=== PATIENT | female | born 1940 | race Caucasian/White ===

== ENCOUNTER → 2017-11-10 | Outpatient (CLI) | payer OTHER ==
[~2017-11-10] MED LIST: ADAL40PEN PO; ERYT.5TO BOTHEYES; ESTR2 PO; IBUP600 PO; MEDR10 PO
== END ==
LOC: LAB SHORT 10:35 → LAB 10:35
DX: L02.11 Cutaneous abscess of neck (principal)
CPT/HCPCS: 87070; 87205

== ENCOUNTER → 2022-06-03 | Outpatient (CLI) | payer OTHER ==
[2022-06-03 11:28] LABS: Source, Urine Clean Catch
[2022-06-03 13:51] LABS: Appearance, Urine Clear (Clear); Bilirubin, Urine Neg (Neg); Blood, Urine 2+ (Neg); Color, Urine Yellow (P-Yellow); Glucose Qualitative, Urine Neg (Neg); Ketones, Urine Neg (Neg); Leukocyte Esterase, Urine 2+ (Neg); Nitrite, Urine Neg (Neg); Protein, Urine Neg (Neg); Specific Gravity, Urine 1.015 (1.003-1.022); Urobilinogen, Urine NORM (Normal)
[2022-06-03 14:07] LABS: Bacteria Few /hpf; Squamous Epithelial Cells Few /hpf (Few); Transitional Epithelial Cells Few /hpf (0-Rare); White Blood Cells, Urine 50-100 /hpf (0-5)
== END | disposition home or self-care (01) ==
LOC: LAB SHORT 11:27 → LAB 11:27
PROVIDERS: Internal Medicine
DX: N39.0 Urinary tract infection, site not specified (principal)
CPT/HCPCS: 81001; 87086

== ENCOUNTER 2022-06-12 16:20 | Emergency (ER) | payer OTHER ==
[~2022-06-12] VITALS: Ht 165.1 cm; Wt 59.0 kg
== END 2022-06-12 20:23 | disposition home or self-care (01) ==
LOC: ER 16:20
DX: R47.01 Aphasia (principal); Z91.012 Allergy to eggs
CPT/HCPCS: 70450

== ENCOUNTER → 2022-07-09 | Outpatient (CLI) | payer OTHER ==
[2022-07-09 13:38] LABS: BASOPHILS ABSOLUTE AUTO 0.09 K/mm3 (0.00-0.23); BASOPHILS PERCENT AUTO 1 % (0-2); EOSINOPHILS ABSOLUTE AUTO 0.24 K/mm3 (0.00-0.68); EOSINOPHILS PERCENT AUTO 3 % (0-6); Hematocrit 35.4 % (33.0-51.0); Hemoglobin 11.6 g/dL (11.5-16.0); IMMATURE GRAN ABSOLUTE AUTO 0.02 K/mm3 (0.00-0.10); IMMATURE GRAN PERCENT AUTO 0 % (0-1); LYMPHOCYTES ABSOLUTE AUTO 1.87 K/mm3 (0.84-5.20); LYMPHOCYTES PERCENT AUTO 26 % (21-46); MONOCYTES PERCENT AUTO 13 % (4-13); Mean Corpuscular HGB 32.7 pg (26.0-34.0); Mean Corpuscular HGB Conc 32.8 g/dL (31.5-36.5); Mean Corpuscular Volume 100 fL (80-100); Mean Platelet Volume 9.9 fL (9.1-12.4); NEUTROPHILS PERCENT AUTO 57 % (41-73); Platelet Count 314 K/mm3 (150-400); RDW Coefficient Variation 12.1 % (11.7-14.2); RDW Standard Deviation 44.9 fL (35.1-46.3); Red Blood Cell Count 3.55 M/mm3 (3.80-5.20); White Blood Cell Count 7.22 K/mm3 (4.00-11.30)
[2022-07-09 13:58] LABS: Albumin, Blood 2.6 g/dL (3.4-5.0); Albumin/Globulin Ratio 0.6 (0.8-1.8); Bilirubin, Total 0.2 mg/dL (0.1-1.0); Bun/Creatinine Ratio 25.2 (12.0-20.0); Calcium, Blood 8.5 mg/dL (8.5-10.1); Creatinine, Blood 0.72 mg/dL (0.40-1.00); Globulin, Blood 4.2 g/dL (2.2-4.0); Potassium, Blood 4.4 mmol/L (3.5-5.5); Total Protein, Blood 6.8 g/dL (6.4-8.2)
== END | disposition home or self-care (01) ==
LOC: LAB SHORT 12:40
PROVIDERS: Nurse Practitioner
DX: M81.0 Age-related osteoporosis without current pathological fracture (principal); D47.2 Monoclonal gammopathy
CPT/HCPCS: 80053; 85025

== ENCOUNTER 2023-02-10 13:12 | Inpatient (IN) | payer OTHER ==
[~2023-02-10] VITALS: Ht 160 cm; Wt 65.3 kg
[2023-02-10 14:08] LABS: Albumin, Blood 2.8 g/dL (3.4-5.0); Albumin/Globulin Ratio 0.5 (0.8-1.8); Bilirubin, Total 0.4 mg/dL (0.1-1.0); Bun/Creatinine Ratio 18.5 (12.0-20.0); Calcium, Blood 8.9 mg/dL (8.5-10.1); Creatinine, Blood 0.92 mg/dL (0.40-1.00); Globulin, Blood 5.2 g/dL (2.2-4.0); Magnesium, Blood 2.2 mg/dL (1.6-2.4); Potassium, Blood 4.5 mmol/L (3.5-5.5)
[2023-02-10 14:14] LABS: BASOPHILS ABSOLUTE AUTO 0.09 K/mm3 (0.00-0.23); BASOPHILS PERCENT AUTO 2 % (0-2); EOSINOPHILS ABSOLUTE AUTO 0.25 K/mm3 (0.00-0.68); EOSINOPHILS PERCENT AUTO 4 % (0-6); Hematocrit 40.6 % (33.0-51.0); Hemoglobin 13.7 g/dL (11.5-16.0); IMMATURE GRAN ABSOLUTE AUTO 0.05 K/mm3 (0.00-0.10); IMMATURE GRAN PERCENT AUTO 1 % (0-1); LYMPHOCYTES ABSOLUTE AUTO 1.97 K/mm3 (0.84-5.20); LYMPHOCYTES PERCENT AUTO 33 % (21-46); MONOCYTES ABSOLUTE AUTO 0.75 K/mm3 (0.16-1.47); MONOCYTES PERCENT AUTO 12 % (4-13); Mean Corpuscular HGB 32.3 pg (26.0-34.0); Mean Corpuscular HGB Conc 33.7 g/dL (31.5-36.5); Mean Corpuscular Volume 96 fL (80-100); NEUTROPHILS ABSOLUTE AUTO 2.93 K/mm3 (1.96-9.15); NEUTROPHILS PERCENT AUTO 49 % (41-73); NRBC ABSOLUTE 0.02 K/mm3 (0.00-0.02); NRBC Auto 0.3 /100 WBC (0.0-0.2); RDW Coefficient Variation 13.5 % (11.7-14.2); Red Blood Cell Count 4.24 M/mm3 (3.80-5.20); White Blood Cell Count 6.04 K/mm3 (4.00-11.30)
[2023-02-10 14:45] LABS: Mean Platelet Volume 9.7 fL (9.1-12.4); Platelet Count 215 K/mm3 (150-400)
[2023-02-10 15:33] LABS: Anti-Xa UFH, PHA Monitoring <0.10 IU/mL; International Normalized Ratio 0.98; Prothrombin Time Results 10.3 Sec (9.7-11.5)
[2023-02-10 17:15] VITALS: BP 126/63
[2023-02-10 20:11] VITALS: BP 109/69
[2023-02-11] VITALS (20 sets, daily range): BP systolic 73–95; BP diastolic 34–58
--- NOTE | 2023-02-11 03:50 | NUR ---
PHYSICIAN CONTACT PT HYPOTENSIVE WITH MAP LESS THAN 65, ANIMAL RIDES MANAGER PROVIDER NOTIFIED. NEW ORDER FOR 25OML BOLUS CURRENTLY INFUSING.
--- NOTE | 2023-02-11 05:51 | NUR ---
SHIFT SUMMARY A/OX4, SBA TO BATHROOM. TELE SR 60S, DENIES CHEST PAIN/PRESSURE. SPO2 >92% ON RA. HYPOTENSIVE THIS SHIFT WITH MAP 60-65, 250 ML BOLUS GIVEN WELL 10MG OF MIDODRINE. NPO SINCE 0000. NO ACUTE CHANGES AT THIS TIME. BED IN LOWEST POSITION WITH CALL LIGHT IN REACH. WILL CONTINUE TO MONITOR AND REPORT TO ONCOMING RN. PATIENT EDUCATED RE: IGNITION SOURCES AND RISK OF INJURY WHILE OXYGEN IS IN USE. PATIENT DENIES SMOKING & PATIENT VERBALIZES UNDERSTANDING.
[2023-02-11 05:54] LABS: Hematocrit 38.3 % (33.0-51.0); Mean Platelet Volume 9.1 fL (9.1-12.4); Platelet Count 229 K/mm3 (150-400)
--- NOTE | 2023-02-11 13:26 | NUR ---
ASSUMED CARE OF PT AT 0700 THIS AM. FIRE SAFETY EDUCATION COMPLETED, PT'S ROOM NEGATIVE FOR IGITION SOURCES. PT DENIES CHEST PAIN OR PRESSURE. DR CARTAGENA AND DR ROBLES IN TO SEE PT THIS AM, PLAN FOR RN EMERGENCY ROOM TODAY. PT TO RN EMERGENCY ROOM @ 0932 AND RETURNED TO ROOM @ 1025. SEE PROCEDURE NOTE FOR DETAILS. TR BAND TO R WRIST WNL, WILL FOLLOW TR BAND ORDERS TO RECOVER. PT AND 'S QUESTIONS ANSWERED TO KRYSTLE GLEASON ABOUT THE PROCEDURE AND DX. PT DENIES CHEST PAIN OR PRESSURE ON RETURN TO ROOM. EDUCATED ABOUT TR BAND PRECAUTIONS AND RECOVERY. BP&MAP NOTED TO BE RUNNING LOW THIS AFTERNOON, SEE VS RECORD. PT IS ASYMPTOMATIC WITH THIS. DR ROBLES NOTIFIED, NO NEW ORDERS AT THIS TIME. PT IS ABLE TO USE CALL LIGHT FOR NEEDS, CALL LIGHT IN REACH, WILL CONTINUE TO MONITOR.
--- NOTE | 2023-02-11 13:46 | NUR ---
Spiritual Care Visit. Pt. is awake in bed and welcomes my visit. Family members are present. After introductions I facilitate a life review. Pt. displays evidence of trust and an optimistic outlook. Pt. verbalized that she lives with her , and has family that are either local or visit her weekly. Rapport is established and we considered matters of karan and belief. During our visit PT arrived. Pt. verbalized gratitude for the spiritual care visit, and welcomed this profiling machine set up operator tool to return.
--- NOTE | 2023-02-11 19:35 | NUR ---
NO ACUTE CHANGES SINCE LAST NOTE. TR BAND IS FULLY RECOVERED W/O COMPLICATION. PT/SPOUSE EDUCATED ABOUT RADIAL PRECAUTIONS, VERBALIZED UNDERSTANDING. BPs/MAP HAVE REMAINED LOW AND PT HAS REMAINED ASYMPTOMATIC T/O THE SHIFT. + URINE PRODUCTION. PT IS ABLE TO USE CALL LIGHT FOR NEEDS, REPORT GIVEN TO LALITHA VALENZUELA.
[2023-02-12 01:05] VITALS: BP 91/45
[2023-02-12 03:32] VITALS: BP 90/48
--- NOTE | 2023-02-12 06:20 | NUR ---
SHIFT SUMMARY PATIENT ALERT AND ORIENTED X4. ABLE TO AMBULATE TO THE BATHROOM WITH STANDBY ASSIST. PATIENT HAS BEEN HYPOTENSIVE WITH MAP <60, ASYMPTOMATIC. PATIENT DENIES HAVING CHEST PAIN OR SHORTNESS OF BREATH. SPO2 96% ON ROOM AIR. SINUS RHYTHM ON TELE. NO BLEEDING NOTED FROM R RADIAL SITE, ARM BOARD IN PLACE. NO ACUTE ISSUES NOTED OVERNIGHT. PATIENT ASSESSED FOR SOURCES OF IGNITION AND EDUCATED ON FIRE SAFETY. WILL CONTINUE TO MONITOR. CALL LIGHT WITHIN REACH.
[2023-02-12 08:21] VITALS: BP 84/56
--- NOTE | 2023-02-12 12:57 | NUR ---
PT ASSESSED FOR IGNITION RISK DEVICES AND LIGHTERS AT 0815, NO REPORTED. PT REMINDED THAT [facility] IS A SMOKE FREE FACILITY, PT EXPRESSED UNDERSTANDING. NO OXYGEN IN USE.
[2023-02-12] MEDS ORDERED: ASPI81CH PO (14:11)
--- NOTE | 2023-02-12 14:42 | NUR ---
Spiritual care visit conducted. Patient is sitting on a chair and alert. She tells me about her medical problems, her family dynamices and her 's work as a Direct Care Provider. She shares about her strong Baptism karan and how much encouragement and strength that she gets from prayer and the reading of scripture. I listen empathically, reinforce helpful attitudes and practice, recite scriptures and provide prayer. Patient responded well and showed signs of being encrouraged in her karan.
--- NOTE | 2023-02-12 15:10 | NUR ---
DISCHARGE PACKET GONE OVER WITH PT AND PT AT 1450. PT DISCHARGED AT 1505 VIA WHEELCHAIR AND ON RA. PT ABLE TO TRANSFER TOA AND FROM WHEELCHAIR WITH MINIMAL ASSISTANCE DISCHARGE PACKET IN BAG ALONG WITH PERSONAL BELONGINGS AND WITH PT DURING DISCHARGE. PT EDUCATED ON RADIAL SITE CARE AND SENT HOME WITH AN INFORMATION PACKET. IV'S REMOVED BY DISPLAY MAKER PRIOR TO DISCHARGE INSTUCTIONS. PT LEFT WITH AN ARM BOARD IN PLACE ON RIGHT RADIAL SITE.
== END 2023-02-12 15:00 | disposition home or self-care (01) | DRG 282 ==
LOC: ER 13:12 → PCU 15:32
PROVIDERS: Student in an Organized Health Care Education/Training Program; ADMIT Internal Medicine
PROC: 4A023N7 Measurement of Cardiac Sampling and Pressure, Left Heart, Percutaneous Approach (ICD-10-PCS; principal; 2023-02-11)
PROC: B2111ZZ Fluoroscopy of Multiple Coronary Arteries using Low Osmolar Contrast (ICD-10-PCS; 2023-02-11)
DX: I51.81 Takotsubo syndrome (principal); I21.A1 Myocardial infarction type 2; M45.9 Ankylosing spondylitis of unspecified sites in spine; M48.00 Spinal stenosis, site unspecified; Z66 Do not resuscitate; R54 Age-related physical debility; R00.1 Bradycardia, unspecified; G62.9 Polyneuropathy, unspecified; I35.0 Nonrheumatic aortic (valve) stenosis; Z79.899 Other long term (current) drug therapy; Z91.012 Allergy to eggs
CPT/HCPCS: 36415; 71046; 76937; 80053; 83735; 84484; 85014; 85018; 85025; 85049; 85520; 85610; 85730; 93005; 93010; 93458; 97110; 97116; 97162; 97166; 97530; 97535; 99152; 99285-25; A9270; C1769; C1887; C1894; C8929; J1644; J2250; J3010; J7030; J7040; J7050; Q9957; Q9967

== ENCOUNTER 2023-07-28 14:34 | Emergency (ER) | payer OTHER ==
[~2023-07-28] VITALS: Ht 167.6 cm; Wt 63.5 kg
[~2023-07-28 14:34] MED LIST changes: +ASPI81CH PO
[2023-07-28 15:33] LABS: BASOPHILS ABSOLUTE AUTO 0.09 K/mm3 (0.00-0.23); BASOPHILS PERCENT AUTO 1 % (0-2); EOSINOPHILS ABSOLUTE AUTO 0.36 K/mm3 (0.00-0.68); EOSINOPHILS PERCENT AUTO 6 % (0-6); Hematocrit 40.3 % (33.0-51.0); Hemoglobin 13.3 g/dL (11.5-16.0); IMMATURE GRAN ABSOLUTE AUTO 0.02 K/mm3 (0.00-0.10); IMMATURE GRAN PERCENT AUTO 0 % (0-1); LYMPHOCYTES PERCENT AUTO 32 % (21-46); MONOCYTES ABSOLUTE AUTO 0.83 K/mm3 (0.16-1.47); MONOCYTES PERCENT AUTO 13 % (4-13); Mean Corpuscular HGB 32.8 pg (26.0-34.0); Mean Corpuscular Volume 100 fL (80-100); NEUTROPHILS ABSOLUTE AUTO 2.94 K/mm3 (1.96-9.15); NEUTROPHILS PERCENT AUTO 47 % (41-73); Platelet Count 231 K/mm3 (150-400); RDW Coefficient Variation 13.1 % (11.7-14.2); RDW Standard Deviation 48.3 fL (35.1-46.3); Red Blood Cell Count 4.05 M/mm3 (3.80-5.20); White Blood Cell Count 6.24 K/mm3 (4.00-11.30)
[2023-07-28 15:55] LABS: Albumin, Blood 2.9 g/dL (3.4-5.0); Albumin/Globulin Ratio 0.6 (0.8-1.8); Bilirubin, Total 0.4 mg/dL (0.1-1.0); Bun/Creatinine Ratio 12.7 (12.0-20.0); Calcium, Blood 8.8 mg/dL (8.5-10.1); Creatinine, Blood 1.02 mg/dL (0.40-1.00); Globulin, Blood 4.7 g/dL (2.2-4.0); Potassium, Blood 4.3 mmol/L (3.5-5.5); Total Protein, Blood 7.6 g/dL (6.4-8.2)
[2023-07-29 01:30] VITALS: BP 112/90
== END 2023-07-29 02:05 | disposition short-term general hospital (02) ==
LOC: ER 14:34
PROVIDERS: Emergency Medicine
DX: I60.9 Nontraumatic subarachnoid hemorrhage, unspecified (principal); I25.2 Old myocardial infarction; M06.9 Rheumatoid arthritis, unspecified; G62.9 Polyneuropathy, unspecified; Z79.82 Long term (current) use of aspirin; Z79.899 Other long term (current) drug therapy; Z91.012 Allergy to eggs
CPT/HCPCS: 70450; 70496; 70498; 80053; 85025; 93005; 93010; 99285-25; A9270; Q9967

== ENCOUNTER 2023-09-30 12:31 | Emergency (ER) | payer OTHER ==
[~2023-09-30] VITALS: Ht 167.6 cm; Wt 72.6 kg
[2023-09-30] MEDS ORDERED: NiCARdipine HCL 25 MG in NS 250 ML IV SCH (12:55)
[2023-09-30] MEDS ORDERED: levETIRAcetam 1,000 MG in NS 100 ML IV ONE (13:10)
[2023-09-30 13:27] LABS: BASOPHILS ABSOLUTE AUTO 0.09 K/mm3 (0.00-0.23); BASOPHILS PERCENT AUTO 1 % (0-2); EOSINOPHILS ABSOLUTE AUTO 0.36 K/mm3 (0.00-0.68); EOSINOPHILS PERCENT AUTO 5 % (0-6); Hematocrit 41.6 % (33.0-51.0); Hemoglobin 13.8 g/dL (11.5-16.0); IMMATURE GRAN ABSOLUTE AUTO 0.03 K/mm3 (0.00-0.10); IMMATURE GRAN PERCENT AUTO 0 % (0-1); LYMPHOCYTES ABSOLUTE AUTO 2.42 K/mm3 (0.84-5.20); LYMPHOCYTES PERCENT AUTO 33 % (21-46); MONOCYTES ABSOLUTE AUTO 0.97 K/mm3 (0.16-1.47); MONOCYTES PERCENT AUTO 13 % (4-13); Mean Corpuscular HGB 32.7 pg (26.0-34.0); Mean Corpuscular HGB Conc 33.2 g/dL (31.5-36.5); Mean Corpuscular Volume 99 fL (80-100); Mean Platelet Volume 9.6 fL (9.1-12.4); NEUTROPHILS ABSOLUTE AUTO 3.56 K/mm3 (1.96-9.15); NEUTROPHILS PERCENT AUTO 48 % (41-73); Platelet Count 243 K/mm3 (150-400); RDW Coefficient Variation 12.8 % (11.7-14.2); Red Blood Cell Count 4.22 M/mm3 (3.80-5.20); White Blood Cell Count 7.43 K/mm3 (4.00-11.30)
[2023-09-30 13:39] LABS: International Normalized Ratio 0.96; Prothrombin Time Results 10.1 Sec (9.7-11.5)
[2023-09-30] MEDS ORDERED: Dexamethasone Sod Phos 10 MG/ML 1ML VIAL IV ONE (13:40)
[2023-09-30] MEDS ORDERED: FentaNYL Citrate 50 MCG/ML 2 ML Injection IV ONE (13:45)
[2023-09-30 14:06] LABS: Albumin, Blood 3.2 g/dL (3.4-5.0); Albumin/Globulin Ratio 0.6 (0.8-1.8); Bilirubin, Total 0.5 mg/dL (0.1-1.0); Bun/Creatinine Ratio 11.5 (12.0-20.0); Calcium, Blood 9.2 mg/dL (8.5-10.1); Creatinine, Blood 1.04 mg/dL (0.40-1.00); Globulin, Blood 5.1 g/dL (2.2-4.0); Potassium, Blood 4.6 mmol/L (3.5-5.5); Total Protein, Blood 8.3 g/dL (6.4-8.2)
[2023-09-30] MEDS ORDERED: NS 1,000 ML IV ONE (14:18)
[2023-09-30] MEDS ORDERED: propofoL 100 ML IV ONE (14:27)
[2023-09-30 14:35] VITALS: BP 171/75
[2023-09-30] MEDS ORDERED: NS 1,000 ML IV SCH (15:00)
[2023-09-30] MEDS ORDERED: propofoL 100 ML IV SCH (15:00)
[2023-09-30] MEDS ORDERED: Propofol 10mg/ml 20 ml Vial (Procedural) IV ONE (18:05)
[2023-09-30] MEDS ORDERED: Etomidate 2MG / ML 10ML Vial XX ONE (18:05)
[2023-09-30] MEDS ORDERED: Rocuronium Bromide 10 MG/ML 5ML Injection IV ONE (18:05)
== END 2023-09-30 14:50 | disposition short-term general hospital (02) ==
LOC: ER 12:31
PROVIDERS: Student in an Organized Health Care Education/Training Program
DX: I61.9 Nontraumatic intracerebral hemorrhage, unspecified (principal); Z86.73 Personal history of transient ischemic attack (TIA), and cerebral infarction without residual deficits; M06.9 Rheumatoid arthritis, unspecified; G62.9 Polyneuropathy, unspecified; Z79.82 Long term (current) use of aspirin; Z79.899 Other long term (current) drug therapy; Z91.012 Allergy to eggs
CPT/HCPCS: 31500; 51702; 70450; 71045; 80053; 83735; 85025; 85610; 93005; 93010; 94002; 96365-59; 96366-59; 96368; 96375-59; 99291-25; 99292; J1100; J1953; J2704; J3010; J7030; J7050